=== PATIENT | male | born 1965 | race Two or more races ===

== ENCOUNTER 2018-10-06 23:35 | Emergency (ER) | payer SELFPAY ==
[~2018-10-06] VITALS: Ht 157.5 cm; Wt 70.3 kg
--- NOTE | 2018-10-06 23:37 | NUR ---
ED Nurse Note: Patient BIBA from [facility]. Patient was seen running through traffic. Patient was brought in on 4 points restraints. Restraints removed upon transfer to bed.
[2018-10-06 23:38] VITALS: BP 112/72
--- NOTE | 2018-10-07 00:37 | NUR ---
ED Nurse Note: Patient resting comfortably with no complaints and in full compliance.
--- NOTE | 2018-10-07 01:43 | NUR ---
ED Nurse Note: Patient relaxing, verbalized to ERMD wishes to leave. Patient is A&Ox4. Will continue to monitor status.
--- NOTE | 2018-10-07 01:52 | Emergency Room Report ---
History of Present Illness General Chief Complaint: Overdose Source: Patient Present Illness HPI This is a 52-year-old male with a history of diabetes. He presents with chief complaint of altered mental status status post drug use. He said that he snorted a large amount of methamphetamine. Afterward he said he went crazy. He was in a nearby grocery store yelling and screaming. He was running around. EMS has to give him Versed IM which calmed him down. By the time he got here he was calm and said he felt better. Denies any suicidal thoughts or homicidal thoughts. No trauma. Denies any chest pain, shortness of breath, abdominal pain or hematuria. Allergies: Coded Allergies: No Known Allergies (Unverified , 10/06/18) Patient History Past Medical History: see triage record, old chart reviewed Past Surgical History: none Pertinent Family History: none Social History: Reports: drug use Immunizations: other Reviewed Nursing Documentation: PMH: Agreed; PSxH: Agreed Nursing Documentation-PMH Past Medical History: No History, Except For Hx Diabetes: Yes Review of Systems Eye: Denies: eye pain, blurred vision ENT: Denies: ear pain, nose congestion, throat swelling Respiratory: Denies: cough, shortness of breath Cardiovascular: Denies: chest pain, palpitations Gastrointestinal: Denies: abdominal pain, diarrhea, nausea, vomiting Musculoskeletal: Denies: back pain, joint pain Skin: Denies: rash Neurological: Denies: headache, numbness Endocrine: Denies: increased thirst, increased urine Hematologic/Lymphatic: Denies: easy bruising All Other Systems: negative except mentioned in HPI Physical Exam Vital Signs Date Time Temp Pulse Resp B/P (MAP) Pulse Ox O2 Delivery O2 Flow Rate FiO2 10/06/18 23:31 99.5 80 24 112/72 (85) 97 Room Air Vitals unremarkable Sp02 EP Interpretation: reviewed, normal General Appearance: well appearing, no apparent distress, alert Head: normocephalic, atraumatic Eyes: bilateral eye PERRL, bilateral eye EOMI ENT: hearing grossly normal, normal pharynx Neck: full range of motion, supple, no meningismus Respiratory: chest non-tender, lungs clear, normal breath sounds Cardiovascular #1: regular rate, rhythm, no murmur Gastrointestinal: normal bowel sounds, non tender, no mass, no organomegaly, no bruit, non-distended Musculoskeletal: back normal, gait/station normal, normal range of motion Neurologic: alert, oriented x3 Psychiatric: other - Agitated Skin: warm/dry Medical Decision Making Diagnostic Impression: Primary Impression: Psychosis Qualified Codes: F23 - Brief psychotic disorder Additional Impression: Methamphetamine abuse ER Course Acute psychosis secondary to drug abuse. Initially, he was tachycardic and diaphoretic. Now he is calm and back to baseline after financial reserve clerk gave him Versed. He denies suicidal thoughts or homicidal thoughts. There is no criteria for 5150. He is not homeless. He said he wants to go home. Will discharge home. This patient is a chronic risk of self injury due to poor impulse control, limited coping skills, and judgment intermittently impaired by intoxication. I believe that the available clinical evidence to suggest that these characteristics derived primarily from personality disorder and are likely very stable over time. Hospitalization would likely attenuate risk of self-harm only during nursing home period, without lasting risk reduction. Serious self-harm , while possible, would likely be inadvertent, and because of impulsivity, and foreseeable. For these reasons, I do not believe hospitalization would provide meaningful reduction in risk of self-harm. Last Vital Signs Date Time Temp Pulse Resp B/P (MAP) Pulse Ox O2 Delivery O2 Flow Rate FiO2 10/06/18 23:38 80 24 Room Air 10/06/18 23:38 99.5 112/72 97 Status: improved Disposition: HOME, SELF-CARE Condition: Stable Referrals: NOT CHOSEN IPA/,REFERRING (PCP) Additional Instructions: Stop using drugs. Follow-up with your doctor in 7 days. Follow-up with rehab. Return if worse. Gavino Castillo MD Oct 07, 2018 01:52
[2018-10-07 02:21] VITALS: BP 112/72
--- NOTE | 2018-10-07 02:21 | NUR ---
ED Nurse Note: Patient cleared for discharge, no s/s of acute distress, A&Ox4, ambulatory with steady gait. Patient verbalized understanding of discharge instructions. Patient called his friend for a ride. PAtient departed with all belongings and was given a shirt and jacket suitable for the weather conditions.
== END 2018-10-07 02:40 | disposition home or self-care (01) ==
LOC: EDBD 23:35 → EMR 23:59
DX: F23 Brief psychotic disorder (principal); F15.10 Other stimulant abuse, uncomplicated; E11.9 Type 2 diabetes mellitus without complications
CPT/HCPCS: 99282